=== PATIENT | male | born 1940 | race Caucasian/White ===

== ENCOUNTER 2016-12-06 14:26 | Inpatient (IN) | payer OTHER ==
[~2016-12-06] VITALS: Ht 177.8 cm; Wt 63.5 kg
[~2016-12-06 14:26] MED LIST: CAR3125T PO; Pantoprazole Sodium Sesquihydr PO
[2016-12-06] MEDS ORDERED: NOREPINEPHRINE BITARTRATE 250 ML IV ONE (14:33)
[2016-12-06] MEDS ORDERED: NOREPINEPHRINE BITARTRATE 250 ML IV SCH (14:45)
[2016-12-06 14:54] LABS: Basophils # (auto) 0 uL; Basophils % (auto) 0.2 % (0.0-2.0); CONDITION Y; DEFINITIVE SEE PRINTOUT; Eosinophils # (auto) 0 uL; Hematocrit 23.9 % (41.0-53.0); Hemoglobin 7.8 g/dL (13.5-17.5); Lymphocytes # (auto) 1.9 uL; Mean Corpuscular Hemoglobin 31.6 pg (28.0-32.0); Mean Corpuscular Hgb Conc. 32.5 g/dL (32.0-36.0); Mean Corpuscular Volume 97.2 fL (80.0-100.0); Mean Platelet Volume 8.5 fL (7.4-10.4); Monocytes # (auto) 0.7 uL; Monocytes % (auto) 6.2 % (0.0-12.0); Neutrophils % (auto) 77.6 % (37.0-80.0); Platelet Count (auto) 247 10^3/uL (140-450); Red Cell Distribution Width 19.5 % (11.6-16.0); SUSPECT SEE PRINTOUT; White Blood Cell 11.6 10^3/uL (4.4-10.8)
[2016-12-06 14:59] LABS: Allen Test No; Base Excess -13.8 mmol/L (-2.0-2.0); Blood 02Sat 97.9 % (96-100); Blood COHb 1.8 % (0.5-1.5); Blood MetHb 0.7 % (0.0-1.5); HCO3 17.9 mmol/L (22-26.0); MODE VENT - A/C; O2Hb 95.5 % (94.0-97.0); PCO2 80.7 mmHg (35.0-45.0); PCO2(T) 80.7 mmHg (35.0-45.0); PO2 217.7 mmHg (80.0-100.0); PO2(T) 217.7 mmHg (80.0-100.0); Sample Type Arterial; pH 6.964 (7.350-7.450)
[2016-12-06] MEDS ORDERED: SODIUM BICARBONATE 8.4% INJ 50ML SYRINGE ONE (15:11)
[2016-12-06 15:14] LABS: INR 1.08 (0.9-1.15); Partial Thromboplastin Time 36.9 sec (22.64-33.71); Prothrombin Time 11.8 sec (9.37-12.3)
[2016-12-06] MEDS ORDERED: SODIUM BICARBONATE 8.4 % INJ 50ML VIAL IV ONE ×2 (15:15)
[2016-12-06] MEDS ORDERED: LEVOFLOXACIN 500MG 100 ML IV ONE (16:30)
[2016-12-06 16:41] VITALS: BP 87/37
[2016-12-06] MEDS ORDERED: AMIODARONE HCL 150 MG in D5W 5% 100 ML IV ONE (17:00)
[2016-12-06] MEDS ORDERED: AMIODARONE HCL 900 MG in DEXTROSE 500 ML IV SCH (17:04)
[2016-12-06] MEDS ORDERED: VASOPRESSIN 50 UNITS in SODIUM CHL 0.9% 247.5 ML IV ONE (17:15)
[2016-12-06 17:27] LABS: BUN/Creatinine Ratio 24.8; Calcium 7.7 mg/dL (8.5-10.1)
[2016-12-06 17:28] LABS: Albumin 1.4 g/dL (3.4-5.0); Bilirubin, Total 0.4 mg/dL (0.2-1.0); Magnesium 2.4 mg/dL (1.6-2.6); Total Protein 5.4 g/dL (6.4-8.2)
[2016-12-06] MEDS ORDERED: SODIUM CHLORIDE 0.9% 1,000 ML IV SCH (17:28)
[2016-12-06] MEDS ORDERED: PANTOPRAZOLE SODIUM 40 MG/10 ML VIAL IV ONE ×2 (17:30→17:45)
[2016-12-06] MEDS ORDERED: MORPHINE SULF INJ 2 MG/ML SYRINGE 1ML IV PRN ×2 (17:30)
[2016-12-06] MEDS ORDERED: PROMETHAZINE HCL 25 MG/ML 1ML IV PRN (17:30)
[2016-12-06] MEDS ORDERED: ALBUTEROL SULF 2.5 MG/0.5ML(0.5%) NEB SOLN NEB PRN (17:30)
[2016-12-06] MEDS ORDERED: MORPHINE SULFATE 4 MG/ML SYRG IV PRN (17:30)
[2016-12-06] MEDS ORDERED: LACTULOSE 20Gm/30ML SOLN PO PRN (17:30)
[2016-12-06] MEDS ORDERED: LORazepam 2MG/ML-1ML VIAL IV PRN (17:30)
[2016-12-06] MEDS ORDERED: NITROGLYCERIN 0.4 MG SL TAB SL PRN (17:30)
[2016-12-06] MEDS ORDERED: ENOXAPARIN SOD 40 MG/0.4 ML SYRINGE SC ONE (17:45)
[2016-12-06 17:48] LABS: Lactic Acid w/Reflex 8.5 mmol/L (0.4-2.0)
[2016-12-06 17:49] LABS: REFLEX LACTIC ACID YES OR NO YES
[2016-12-06] MEDS: LEVOFLOXACIN 500MG 100 ML IV ONE ×2 (17:50→17:55)
[2016-12-06] MEDS ORDERED: IPRATROPIUM BROM 0.5 MG/2.5ML INH SOL NEB SCH (18:00)
[2016-12-06] MEDS ORDERED: ALBUTEROL SULF 2.5 MG/0.5ML(0.5%) NEB SOLN NEB SCH (18:00)
[2016-12-06 18:15] VITALS: BP 43/28
[2016-12-06] MEDS ORDERED: CLINDAMYCIN 600MG IV 50 ML IV SCH (22:00)
[2016-12-07] MEDS ORDERED: ENOXAPARIN SOD 40 MG/0.4 ML SYRINGE SC SCH (10:00)
[2016-12-07] MEDS ORDERED: LEVOFLOXACIN 500MG 100 ML IV SCH (10:00)
[2016-12-07] MEDS ORDERED: PANTOPRAZOLE SODIUM 40 MG/10 ML VIAL IV SCH (10:00)
== END 2016-12-06 18:36 | disposition expired | DRG 871 ==
LOC: EDBD 14:26 → EDUNIT# 14:26 → ER 14:29 → TELE 14:30
PROVIDERS: ADMIT Internal Medicine; ATTEND Internal Medicine
PROC: 5A12012 Performance of Cardiac Output, Single, Manual (ICD-10-PCS; principal; 2016-12-06)
PROC: 5A1935Z Respiratory Ventilation, Less than 24 Consecutive Hours (ICD-10-PCS; 2016-12-06)
PROC: 0BH17EZ Insertion of Endotracheal Airway into Trachea, Via Natural or Artificial Opening (ICD-10-PCS; 2016-12-06)
DX: A41.9 Sepsis, unspecified organism (principal); J18.9 Pneumonia, unspecified organism; C78.7 Secondary malignant neoplasm of liver and intrahepatic bile duct; G93.1 Anoxic brain damage, not elsewhere classified; J44.0 Chronic obstructive pulmonary disease with (acute) lower respiratory infection; D63.8 Anemia in other chronic diseases classified elsewhere; F17.210 Nicotine dependence, cigarettes, uncomplicated; I11.0 Hypertensive heart disease with heart failure; I25.10 Atherosclerotic heart disease of native coronary artery without angina pectoris; I46.9 Cardiac arrest, cause unspecified; I50.9 Heart failure, unspecified; Z51.5 Encounter for palliative care; Z85.118 Personal history of other malignant neoplasm of bronchus and lung; Z87.11 Personal history of peptic ulcer disease; I25.2 Old myocardial infarction; Z92.21 Personal history of antineoplastic chemotherapy; Z92.3 Personal history of irradiation; Z95.5 Presence of coronary angioplasty implant and graft; Z88.5 Allergy status to narcotic agent; Z66 Do not resuscitate
CPT/HCPCS: 36415; 36556; 36600; 70450; 71010; 80053; 80307; 82140; 82550; 82805; 83605; 83735; 83880; 84443; 84484; 85025; 85045; 85379; 85610; 85730; 86141; 86850; 86900; 86901; 86920; 87040; 87070; 87077; 87186; 87205; 92950; 93005; 94003; 96365; 96367; 96368; 99291; J1956; J3490; J7060